=== PATIENT | male | born 1965 | race Caucasian/White ===

== ENCOUNTER → 2025-09-05 09:59 | Outpatient (BNVA) | payer MEDICARE, MEDICAID, SELFPAY | PROVIDERS: PCP Family Medicine; Referring Provider Family Medicine; Visit Provider Nurse Practitioner Gerontology | DX: N40.1 Benign prostatic hyperplasia with lower urinary tract symptoms (principal); R35.1 Nocturia; R39.12 Poor urinary stream; R60.0 Localized edema | CPT/HCPCS: 99205; 81002; 51798 ==